=== PATIENT | male | born 1985 | race Caucasian/White ===

== ENCOUNTER 2017-04-02 20:27 | Emergency (ER) | payer MEDICAID ==
[~2017-04-02] VITALS: Ht 177.8 cm; Wt 84.1 kg
[2017-04-02 22:10] LABS: INFLUENZA TYPE A POSITIVE FOR TYPE A (NEGATIVE); INFLUENZA TYPE B NEGATIVE FOR TYPE B (NEGATIVE)
[2017-04-02 22:20] VITALS: BP 122/82
[2017-04-02] MEDS ORDERED: OSELTAMIVIR PHOSPHATE 75 MG CAPSULE PO ONE (22:45)
[2017-04-02] MEDS ORDERED: ACETAMINOPHEN 325 MG TABLET PO ONE (22:45)
== END 2017-04-02 22:45 | disposition home or self-care (01) ==
LOC: EMS 20:31
DX: J11.1 Influenza due to unidentified influenza virus with other respiratory manifestations (principal); F17.210 Nicotine dependence, cigarettes, uncomplicated
CPT/HCPCS: 87804; 99284

== ENCOUNTER 2023-04-06 13:14 | Emergency (ER) | payer MEDICAID, OTHER ==
[~2023-04-06] VITALS: Ht 177.8 cm; Wt 84.1 kg
[2023-04-06 13:33] VITALS: TEMP 98
[2023-04-06 13:45] VITALS: BP 155/77; PULSE 80; RESP 18
== END 2023-04-06 18:43 | disposition left against medical advice (07) ==
LOC: EMS 13:14
DX: H57.12 Ocular pain, left eye (principal); F17.210 Nicotine dependence, cigarettes, uncomplicated
CPT/HCPCS: 99283